=== PATIENT | female | born 1990 | race Caucasian/White ===

== ENCOUNTER 2019-09-09 21:32 | Emergency (ER) | payer BC, SELFPAY ==
[2019-09-09 21:41] VITALS: BP 174/134; PULSE 101; RESP 18; TEMP 36.5; O2SAT 99; BMI 34.5
--- NOTE | 2019-09-09 22:04 | ECG_ITS ---
[facility] ED Test Date: 2019-09-09 Pat Name: Alpa Rosario Department: Room: Gender: Female Technology Consultant: : 1990 Requested By: Reny Bee Order Number: [id number] Taryn MD: Samuel Morocho M.D. Measurements Intervals [place] Rate: 95 P: 56 [place]: 177 QRS: 27 QRSD: 98 T: 30 QT: 345 QTc: 435 Interpretive Statements SINUS RHYTHM No previous ECG available for comparison Electronically Signed On 09-10-2019 7:55:18 CDT by Samuel Morocho M.D. [id number]
[2019-09-09 22:23] LABS: Basophils # 0.1 10^3/uL (0.0-0.1); Basophils % 0.6 %; Eosinophils # 0.1 10^3/uL (0.0-0.8); Eosinophils % 1.3 %; Hematocrit 46.8 % (37.0-47.0); Hemoglobin 15.4 g/dL (11.5-15.3); Lymphocytes # 3.6 10^3/uL (0.8-4.8); Lymphocytes % 42.5 %; Mean Corpuscular HGB Conc 32.9 g/dL (30.0-36.0); Mean Corpuscular Hemoglobin 27.5 pg (28.0-34.0); Mean Corpuscular Volume 83.7 fL (81-99); Mean Platelet Volume 9.8 fL (7.4-10.4); Monocytes # 0.6 10^3/uL (0.2-0.9); Monocytes % 7.2 %; Nucleated Red Blood Cells % 0 %; Platelet Count 241 10^3/cmm (130-400); Red Blood Count 5.59 10^6/uL (4.1-5.3); Red Cell Distribution Width 12.4 % (12.1-15.1); White Blood Count 8.4 10^3/uL (4.0-10.0)
[2019-09-09 22:43] LABS: Alanine Aminotransferase 21 U/L (0-33); Albumin Level 4.6 g/dL (3.5-5.2); Alkaline Phosphatase 64 IU/L (35-105); Anion Gap 17.7 (5-19); Aspartate Amino Transferase 18 U/L (0-32); Blood Urea Nitrogen 10 mg/dL (6-20); Carbon Dioxide 23 mmol/L (22-29); Chloride 97 mmol/L (98-107); Globulin 2.5 g/dL (1.3-4.6); Glomerular Filtration Rate 143.9 mL/min (90-130); Glucose 314 mg/dL (65-115); Osmolality Calculated 286 mOsm/kg (285-295); Potassium 3.7 mmol/L (3.5-5.1); Sodium 134 mmol/L (136-145); Total Bilirubin 0.4 mg/dL (0.15-1.2); Total Protein 7.1 g/dL (6.6-8.7)
--- NOTE | 2019-09-09 22:44 | ED_ITS ---
HPI - General Adult General: Chief complaint: General Medical Stated complaint: jaw pain Time Seen by Provider: 09/09/19 21:56 Source: patient Mode of arrival: ambulatory Limitations: no limitations History of Present Illness: HPI narrative: Alpa is a very nice 29-year-old female who comes in complaining of jaw pain. Her jaw pain started at 1:00 today and is been constant since. She describes the pain as a deep aching pain right at the bilateral temporomandibular joints. She denies any fever, chills or chest pain. She does have pain in the back of her neck causing a headache. She denies any chest pain, shortness of breath, diaphoresis, nausea or vomiting, syncope or near syncopal type symptoms. Patient was concerned because her blood pressure was markedly elevated and she does not have a history of high blood pressure. It is because of this she came to the hospital for evaluation. Associated symptoms: Reports headache(s); Deny chest pain, confusion, diaphoresis, dyspnea, malaise, nausea, rash, palpitations, syncope or vomiting Review of Systems Const: Denies: fever(s), chills, body aches, fatigue, malaise or diaphoresis Eyes: Denies: change in vision, blurry vision, blind spots, photophobia, eye discharge or eye redness ENMT: Denies: throat pain, odynophagia, hoarseness, swelling of lips/tongue, oral sores, ear or mastoid pain, ear discharge, change in hearing or nasal discharge Card: Denies: chest pain, palpitations, irregular heart rhythm, edema, lightheadedness, syncope, pre-syncope, dyspnea on exertion or orthopnea Resp: Denies: dyspnea, productive cough, non-productive cough, wheezing, hemoptysis or chest congestion GI: Denies: abdominal pain, nausea, vomiting, hematemesis, coffee ground emesis, heartburn, diarrhea, constipation, GI cramping, hematochezia or melena : Denies: flank pain, dysuria, urinary frequency, urinary urgency or hematuria Musc: Denies: neck pain, back pain, extremity pain, extremity swelling, joint pain, joint swelling, joint redness, joint warmth or joint stiffness Skin/Breast: Denies: rash, pruritus, erythema, skin tenderness or jaundice Neuro: Reports: headache(s); Denies: numbness in extremities, weakness in extremities, sensory changes, lack of coordination, difficulty walking, dizziness, vertigo, confusion, Slurred speech present or seizure-like activity Clement/Lymph: Denies: easy bruising, easy bleeding, petechiae, purpura or enlarged lymph nodes All/Imm: Denies: urticaria, throat swelling, tongue swelling, facial swelling or acute wheezing PFSH ED PFSH: Medical History DM type 2 (diabetes mellitus, type 2) Family History Other CAD (coronary artery disease) Stroke Social History Smoking and tobacco status: never smoked Female Reproductive History: Date of last menstrual period: 08/28/19 Physical Exam Const: COMMON NORMALS: no acute distress, patient oriented x3, no limitations, healthy appearing and well nourished GENERAL APPEARANCE: cooperative, well kempt and well developed HENMT: COMMON NORMALS: normocephalic, atraumatic, external ears normal, EAC's normal and Normal external nose present HEAD & SCALP: normal to inspection, normocephalic and atraumatic FACE & SINUS: normal facial exam and face symmetric NOSE: Normal external nose present and Normal nares present EXTERNAL EAR: Yes external ears normal EXTERNAL AUDITORY CANAL: EAC's normal MOUTH: Normal oral and palatal mucosa present, lip normal, tongue normal and other (Patient has mild clicking left greater than right with jaw motion.) Eye: COMMON NORMALS: Equal, round and reactive pupils present and conjunctivae normal GENERAL EYE: appearance normal, both eyes and all related structures ALIGNMENT: Yes alignment normal PERIORBITAL: periorbital findings normal EYELID: eyelids normal CONJUNCTIVA: Yes conjunctivae normal SCLERA: sclerae normal PUPIL: Yes Equal, round and reactive pupils present Neck/C-Spine: COMMON NORMALS: full ROM, no lymphadenopathy, supple, no meningeal signs and no JVD GENERAL: Yes normal visual inspection and Yes trachea midline Chest: COMMONS NORMALS: normal inspection of the chest and normal palpation of entire chest wall Resp: COMMON NORMALS: normal respiratory effort, No retractions and No use of accessory muscles EFFORT & INSPECTION: Yes able to speak in complete sentences and Yes symmetric chest movement AUSCULTATION: no crackles, no rales, no rhonchi and no wheezes Cardio: COMMON NORMALS: no JVD, regular rate, regular rhythm, S1 normal heart sound present and S2 normal heart sound present RATE: regular rate RHYTHM: regular rhythm HEART SOUNDS: S1 normal heart sound present, S2 normal heart sound present, no click, no gallops, no murmurs, no rubs and abnormal split S2 GI: COMMON NORMALS: Soft to palpation and No hepatosplenomegaly present PALPATION: Yes Soft to palpation, No Tenderness to palpation present (GI), No Guarding due to palpation present (GI), No Rigid due to palpation, Yes No hepatosplenomegaly present, No Hernia present, No Palpable mass present and No Pulsatile mass present : COMMON NORMALS: Yes no CVA tenderness BLADDER/KIDNEY EXAM: Yes no CVA tenderness EXTERNAL FEMALE EXAM: No Hernia present Back/Pelvis: COMMON NORMALS: no CVA tenderness, thoracic and lumbar spine normal to inspection, no thoracic nor lumbar tenderness and thoraco-lumbar ROM normal Extremity: COMMON NORMALS: normal to inspection, full ROM, capillary refill normal, no joint enlargement, no clubbing, cyanosis or edema and no calf tenderness Neuro: COMMON NORMALS: patient oriented x3, CN's II-XII intact bilaterally, moves all extremities, no focal motor deficits and no sensory deficits noted MENINGEAL SIGNS: Yes no meningeal signs SPEECH: speech normal Psych: COMMON NORMALS: mental status grossly normal, Normal thought process present, cooperative, normal affect, speech normal and activity/motor behavior normal APPEARANCE: Yes well kempt SPEECH: Yes normal speech THOUGHT PROCESS: Normal thought process present Skin: COMMON NORMALS: no rashes or lesions noted, turgor normal, no jaundice, no petechiae and no mottling GENERAL SKIN EXAM: no rashes or lesions noted and turgor normal Course Vital Signs: Vital signs: Vital Signs Temperature 97.7 F 09/09/19 21:41 Pulse Rate 92 09/10/19 00:03 Respiratory Rate 16 09/10/19 00:03 Blood Pressure 147/110 09/10/19 00:03 Pulse Oximetry 98 09/10/19 00:03 MDM - General Adult MDM Narrative: Medical decision making narrative: Alpa is a very nice 29-year-old female who comes in with a tension headache and jaw discomfort. The patient was specifically concerned about her blood pressure and could this be some type of heart attack. She had no time describes any chest pain, shortness of breath, diaphoresis or otherwise. Her pain is been constant since 1 PM and she has a normal EKG and a normal troponin. Her heart score is a 2 and she is low risk using the EDACs pathway. I offered to repeat an EKG and troponin here to better risk stratify her but she stating now she wants to go home. Her blood pressures down and she feels much better. She does agree that she needs to follow-up with Dr. Rodriguez for further evaluation and care of her blood pressure and she will do so. She agrees to return should her symptoms change or worsen. She is asking for something for tension headaches so I will place her on a muscle relaxer and Motrin until she can be seen by Dr. Rodriguez. With the patient having over 3 or 6 hours of constant pain that if attributed to ACS she has no sign of acute coronary syndrome on EKG or troponin I believe she can be safely discharged. The patient does not want any further testing and wants to go home. At this time I see no sign of no acute cardiac abnormality. Lab Data: Attestation: I reviewed the patient's lab results. Labs: Lab Results 09/09/19 09/09/19 09/09/19 Range/Units 22:14 22:14 22:14 WBC 8.4 (4.0-10.0) 10^3/ uL RBC 5.59 H (4.1-5.3) 10^6/u L Hgb 15.4 H (11.5-15.3) g/dL Hct 46.8 (37.0-47.0) % MCV 83.7 (81-99) fL MCH 27.5 L (28.0-34.0) pg MCHC 32.9 (30.0-36.0) g/dL RDW 12.4 (12.1-15.1) % Plt Count 241 (130-400) 10^3/c mm MPV 9.8 (7.4-10.4) fL Neut % (Auto) 47.0 % Lymph % (Auto) 42.5 % [place] % (Auto) 7.2 % Eos % (Auto) 1.3 % Baso % (Auto) 0.6 % Neut # (Auto) 4.0 (1.8-7.7) 10^3/u L Lymph # (Auto) 3.6 (0.8-4.8) 10^3/u L [place] # (Auto) 0.6 (0.2-0.9) 10^3/u L Eos # (Auto) 0.1 (0.0-0.8) 10^3/u L Baso # (Auto) 0.1 (0.0-0.1) 10^3/u L Nucleated RBC % (a uto) 0 % Nucleated RBCs # 0.0 /100WBC Sodium 134 L (136-145) mmol/L Potassium 3.7 (3.5-5.1) mmol/L Chloride 97 L (98-107) mmol/L Carbon Dioxide 23 (22-29) mmol/L Anion Gap 17.7 (5-19) BUN 10 (6-20) mg/dL Creatinine 0.5 (0.5-0.9) mg/dL GFR Calculation 143.9 H (90-130) mL/min Glucose 314 H (65-115) mg/dL Calculated Osmolal ity 286 (285-295) mOsm/k g Calcium 10.0 (8.5-10.5) mg/dL Total Bilirubin 0.4 (0.15-1.2) mg/dL AST 18 (0-32) U/L ALT 21 (0-33) U/L Alkaline Phosphata se 64 (35-105) IU/L Troponin T Baselin e 6 (0-10) ng/L Total Protein 7.1 (6.6-8.7) g/dL Albumin 4.6 (3.5-5.2) g/dL Globulin 2.5 (1.3-4.6) g/dL Serum Ketones (Negative) 09/09/19 Range/Units 22:14 WBC (4.0-10.0) 10^3/ uL RBC (4.1-5.3) 10^6/u L Hgb (11.5-15.3) g/dL Hct (37.0-47.0) % MCV (81-99) fL MCH (28.0-34.0) pg MCHC (30.0-36.0) g/dL RDW (12.1-15.1) % Plt Count (130-400) 10^3/c mm MPV (7.4-10.4) fL Neut % (Auto) % Lymph % (Auto) % [place] % (Auto) % Eos % (Auto) % Baso % (Auto) % Neut # (Auto) (1.8-7.7) 10^3/u L Lymph # (Auto) (0.8-4.8) 10^3/u L [place] # (Auto) (0.2-0.9) 10^3/u L Eos # (Auto) (0.0-0.8) 10^3/u L Baso # (Auto) (0.0-0.1) 10^3/u L Nucleated RBC % (a uto) % Nucleated RBCs # /100WBC Sodium (136-145) mmol/L Potassium (3.5-5.1) mmol/L Chloride (98-107) mmol/L Carbon Dioxide (22-29) mmol/L Anion Gap (5-19) BUN (6-20) mg/dL Creatinine (0.5-0.9) mg/dL GFR Calculation (90-130) mL/min Glucose (65-115) mg/dL Calculated Osmolal ity (285-295) mOsm/k g Calcium (8.5-10.5) mg/dL Total Bilirubin (0.15-1.2) mg/dL AST (0-32) U/L ALT (0-33) U/L Alkaline Phosphata se (35-105) IU/L Troponin T Baselin e (0-10) ng/L Total Protein (6.6-8.7) g/dL Albumin (3.5-5.2) g/dL Globulin (1.3-4.6) g/dL Serum Ketones Negative (Negative) EKG Data^: EKG 1: Attestation: I personally reviewed and interpreted this EKG as follows: EKG interpretation date: 09/09/19 EKG interpretation time: 22:19 Interpretation: Normal sinus rhythm at 95 beats a minute, no acute ST or T wave changes, no blocks, normal intervals. Discharge Plan Discharge Patient Disposition: Home, Self-Care Clinical Impression: TMJ arthropathy Acute tension headache Qualifiers: Intractability: not intractable Qualified Code(s): G44.209 - Tension-type headache, unspecified, not intractable Condition: Stable Prescriptions: New cyclobenzaprine 10 mg tablet 10 mg PO TID PRN (Reason: muscle spasm) Qty: 30 RF: 0 ibuprofen 800 mg tablet 600 mg PO TID PRN (Reason: pain) Qty: 15 RF: 0 Discharge Orders: Discharge Order (Routine); Ordered 09/09/19 Ordered By: Reny Fang Referrals: Jb Rodriguez MD [Primary Care Provider] - 1-3 days Discharge Diet: Advance as tolerated Discharge Activity: Increase activity as tolerated Patient Instructions: Tension Headache (ED), Temporomandibular Disorder (ED), Acute Headache (ED) Activity Restrictions/Additional Instructions: Please return to the ER immediately for any of the signs or symptoms listed on your discharge instruction sheets, worsening/changing of your symptoms, you are not getting better as quickly as expected, or for ANY other cause or concerns. Be certain to follow-up with Dr. Rodriguez for further evaluation and treatment of your elevated blood pressure. Return to the ER for increased pain, fever, chest pain, shortness of breath, or for any other cause for concern. You have been offered further evaluation and care here but have declined. If your symptoms change or worsen please return to the ER immediately for recheck. Keep a blood pressure log for Dr. Rodriguez so that when he sees you he will have more information to make a decision about how to manage her blood pressure. Discharge Date/Time: 09/10/19 00:04 Coding Level of Care Code ED Chief Legal Officer for [employer] Fwd Exam Comprehensive
[2019-09-09 22:45] LABS: Troponin(5th) Baseline 6 ng/L (0-10)
[2019-09-09 22:51] VITALS: RESP 17; O2SAT 96
[2019-09-09] MEDS: morphine 4 mg/mL SDV 1 mL IVP (22:51)
[2019-09-09] MEDS: ondansetron 2 mg/ML SDV 2 mL 4 MG IVP (22:53)
[2019-09-09 23:12] LABS: Ketone (Acetest) Serum Negative (Negative)
[2019-09-10] MEDS: cyclobenzaprine 10 mg Tablet PO (00:02)
[2019-09-10 00:03] VITALS: BP 147/110; PULSE 92; RESP 16; O2SAT 98
== END 2019-09-10 00:04 | disposition home or self-care (01) ==
PROVIDERS: Emergency Provider Emergency Medicine; PCP Family Medicine
DX: M26.69 Other specified disorders of temporomandibular joint (principal); G44.209 Tension-type headache, unspecified, not intractable; E11.9 Type 2 diabetes mellitus without complications
CPT/HCPCS: 12345; 36415; 80053; 82009; 84484; 85025; 93005; 96374; 96375; 99281; 99284; J2270; J2405